=== PATIENT | female | born 1940 | race Caucasian/White ===

== ENCOUNTER 2016-09-02 13:38 | Observation (INO) | payer MEDICARE, OTHER, MEDICAID ==
[~2016-09-02 13:38] MED LIST: ACETAMINOPHEN1 EAC4 PO; ACIDOPHILUS1 CAP; ACIDOPHILUS1 EAC5 PO; AMARYL1 M1 PO; AMOXICILLIN500 M2 PO; ASPIR 8181 M1 PO; ASPIR 8181 MG PO; CALCIUM; CALCIUM CITRAT1 EAC6 PO; CALCIUM CITRATE PO; CARVEDILOL3.125 M1 PO; CINNAMON500 MG; CITRUCEL; CO Q-10100 M2 PO; COENZYME Q10; COLACE100 MG PO; COREG6.25 MG PO; CRANBERRY PO; CRESTOR10 MG PO; CRESTOR10 MG/TAB PO; CYMBALTA30 MG PO; Calcium PO; DOCUSATE CALCI100 MG; DULCOLAX5 MG PO; FERROUS SULFAT325 MG PO; FISH OIL 1,0001 CA PO; FISH OIL 1,0001 EA10 PO; FISH OIL 1,0001 EAC9 PO; FLEXERIL5 MG PO; FLONASE ALLERG9.9 ML NS; FLONASE16 G3 NS; FLONASE16 GM NS; FLORINEF ACETA0.1 MG PO; FLUCONAZOLE200 MG; FLUOXETINE HCL20 MG PO; FLUOXETINE HCL40 MG PO; FORTEO2.4 ML SQ; GLUCOPHAGE500 M3 PO; IMODIUM2 MG PO; ISOSORBIDE MONO30 MG; KEFLEX500 M1 PO; LIDODERM700 MG TOP; LORTAB 5-500 T1 EACH PO; LYZINE; METFORMIN HCL500 MG PO; METHSCOPOLAMIN2.5 MG PO; METHSCOPOLAMINE; MILK OF MAGNESIA; MIRALAX17 G2 PO; MIRAPEX0.25 M1 PO; MULTIVITAMIN1 CAP; MULTIVITAMIN1 TAB PO; MYRBETRIQ50 M1 PO; NIASPAN500 MG; NIASPAN500 MG PO; NITROFURANTOIN100 MG PO; NORCO 5-325 TA1 EACH PO; NORCO 5/325 TAB1 TAB PO; NORCO 7.5/3251 TA1 PO; OMEGA 31 CAP PO; OMEPRAZOLE20 MG PO; OMEPRAZOLE40 M2 PO; ONDANSETRON ODT4 M1 PO; PEPCID AC20 MG PO; PROTONIX40 MG PO; SINEMET-25/1001 TAB PO; SYSTANE ULTRA 010 ML BOTH EYES; TRAMADOL HCL50 M2 PO; TRAMADOL HCL50 MG PO; TRIMETHOPR100 MG/TAB PO; TYLENOL PM EX-S1 TAB; TYLENOL PM EX-S1 TAB PO; TYLENOL325 MG; TYLENOL325 MG PO; VESICARE PO; VESICARE5 M1 PO; VITAMIN C; VITAMIN D; VITAMIN D 22000 UNIT PO; VITAMIN D31000 UNI4 PO; VITAMIN D400 UNIT PO; ZOFRAN ODT8 MG/TAB PO; [UNRECOGNIZED DRUG - CODE] PO
[2016-09-02] MEDS ORDERED: ASPIRIN EC81 MG PO (14:37)
[2016-09-02] MEDS ORDERED: PROZAC20 M3 PO (14:41)
[2016-09-02] MEDS ORDERED: PROZAC40 M1 PO (14:42)
[2016-09-02] MEDS ORDERED: MIRAPEX0.25 M1 PO (14:43)
[2016-09-02] MEDS ORDERED: GLUCOPHAGE500 M3 PO (14:44)
[2016-09-02] MEDS ORDERED: COREG3.125 M1 PO (14:45)
[2016-09-02] MEDS ORDERED: NIACIN ER500 M1 PO (14:47)
[2016-09-02] MEDS ORDERED: ROSUVASTATIN CA10 MG PO (14:47)
[2016-09-02] MEDS ORDERED: VITAMIN D31000 UNI4 PO (14:48)
[2016-09-02] MEDS ORDERED: FISH OIL 11000 MG/CA PO (14:48)
[2016-09-02] MEDS ORDERED: TAB-A-VITE1 EAC1 PO (14:49)
[2016-09-02] MEDS ORDERED: CALCIUM CITRAT1 EA25 PO (14:49)
[2016-09-02] MEDS ORDERED: OMEPRAZOLE40 M2 PO (14:49)
[2016-09-02] MEDS ORDERED: FEOSOL325 M1 PO (14:49)
[2016-09-02] MEDS ORDERED: FLONASE ALLERG9.9 ML (14:50)
[2016-09-02] MEDS ORDERED: MACRODANTIN50 M2 PO ×2 (14:50→20:52)
[2016-09-02] MEDS ORDERED: CRANBERRY500 M2 PO (14:51)
[2016-09-02] MEDS ORDERED: PROBIOTIC1 EA10 PO (14:52)
[2016-09-02] MEDS ORDERED: [UNRECOGNIZED DRUG - CODE] PO (14:52)
[2016-09-02] MEDS ORDERED: TYLENOL EXTRA500 M1 PO (14:53)
[2016-09-02] MEDS ORDERED: TYLENOL PM EX-1 EAC4 PO (14:53)
[2016-09-02 15:20] LABS: BASO % 0.5 % (0-2); EOS % 4.4 % (0-7); EOSINOPHIL ABSOLUTE COUNT 0.3 tho/cmm (0.0-0.7); HCT-HEMATOCRIT 31.8 % (34.0-49.0); HGB-HEMOGLOBIN 10.5 gm/dl (12.0-15.5); LYMPH % 31.5 % (20-45); LYMPH ABSOLUTE COUNT 2.1 tho/cmm (0.8-4.5); MCV (MEAN CELL VOLUME) 93.8 fl (82.0-96.0); MEAN PLATELET VOLUME 9.5 cmc (9.4-12.4); MONO % 11.7 % (0-12); MONOCYTE ABSOLUTE COUNT 0.8 tho/cmm (0.0-1.2); NEUTROPHIL ABSOLUTE COUNT 3.4 tho/cmm (1.6-8.0); NEUTROPHIL-AUTOMATED 3.4 tho/cmm (1.6-8.0); NEUTROPHILS % 51.9 % (40-80); PLATELET COUNT 225 tho/cmm (150-450); RED BLOOD COUNT 3.39 mil/cmm (4.00-5.20); RED CELL DISTRIBUTION WIDTH 11.8 % (12.4-16.4); WHITE BLOOD COUNT 6.6 tho/cmm (4.0-10.0)
[2016-09-02 15:25] LABS: ALBUMIN 3.6 g/dl (3.5-5.0); ALKALINE PHOSPHATASE 43 U/L (33-138); ALT/SGPT 27 U/L (12-78); ANION GAP 12 mmol/L (0-20); AST/SGOT 24 U/L (10-40); BILIRUBIN,TOTAL 0.2 mg/dl (0-1.5); BLOOD UREA NITROGEN 17 mg/dl (6-24); CARBON DIOXIDE-VENOUS 25 mmol/L (22-32); CHLORIDE 103 mmol/l (96-110); CREATININE 0.79 mg/dl (0.50-1.10); GLUCOSE 100 mg/dL (70-110); POTASSIUM 4.1 mmol/L (3.7-5.1); SODIUM 136 mmol/L (135-145); eGFR VALUE FOR BLACK 85 mL/Min
[2016-09-02 15:36] LABS: URINE APPEARANCE CLEAR; URINE BILIRUBIN NEGATIVE (NEG); URINE BLOOD SMALL (NEG); URINE COLOR YELLOW; URINE GLUCOSE (UA) NEGATIVE (NEG); URINE KETONE NEGATIVE (NEG); URINE LEUKOCYTE ESTERASE NEGATIVE (NEG); URINE NITRITE NEGATIVE (NEG); URINE PH 6.5 (5.0-8.0); URINE PROTEIN NEGATIVE (NEG); URINE SPECIFIC GRAVITY 1.005 (1.003-1.030)
[2016-09-02 15:42] LABS: ESR-ERYTHROCYTE SED RATE 34 mm/hr (0-30)
[2016-09-02 15:42] LABS: URINE EPITHELIAL CELLS 0-2 /[HPF] (0-10)
[2016-09-02 15:43] LABS: URINE WBC RARE /[HPF] (0-5)
[2016-09-02] MEDS ORDERED: SYSTANE ULTRA OP (20:49)
[2016-09-02] MEDS ORDERED: TRIMETHOPRIM100 M1 PO (20:50)
[2016-09-02] MEDS ORDERED: POLYETHYLENE G255 G1 PO (20:51)
[2016-09-02] MEDS ORDERED: TYLENOL ARTHRI650 M1 PO (20:53)
[2016-09-02] MEDS ORDERED: REFRESH PLUS1 EACH EACH EYE (20:55)
[2016-09-02] MEDS ORDERED: TRANSDERM-SCOP1 EACH TD (20:55)
[2016-09-02] MEDS ORDERED: PROLIA60 MG/1 M1 SC (20:56)
[2016-09-02] MEDS ORDERED: ONDANSETRON HCL4 M2 PO (20:57)
[2016-09-02] MEDS ORDERED: TOBREX3.5 G1 RIGHT EYE (20:58)
[2016-09-04] MEDS ORDERED: NEURONTIN100 M1 PO (14:05)
[2016-12-14] MEDS ORDERED: SYSTANE ULTRA 010 M1 OP (17:31)
[2016-12-14] MEDS ORDERED: MULTIVITAMINS1 EAC6 PO (17:31)
[2016-12-14] MEDS ORDERED: CAL-CITRATE PL1 EAC1 PO (17:31)
[2016-12-14] MEDS ORDERED: FEOSOL325 M1 PO (17:31)
[2016-12-14] MEDS ORDERED: COREG3.125 M1 PO (17:32)
[2016-12-14] MEDS ORDERED: VITAMIN D32000 UNI3 PO (17:32)
[2016-12-14] MEDS ORDERED: POLYETHYLENE G255 G1 PO (17:32)
[2016-12-14] MEDS ORDERED: TRIMETHOPRIM100 M1 PO (17:32)
[2016-12-14] MEDS ORDERED: FLOVENT HFA1 PUFF INH (17:32)
[2016-12-14] MEDS ORDERED: MACRODANTIN50 M2 PO (17:33)
[2016-12-14] MEDS ORDERED: ASPIRIN81 M1 PO (17:33)
[2016-12-14] MEDS ORDERED: CRESTOR10 M1 PO (17:33)
[2016-12-14] MEDS ORDERED: FLUOXETINE HCL40 M1 PO (17:34)
[2016-12-14] MEDS ORDERED: TYLENOL ARTHRI650 M1 PO (17:37)
[2016-12-14] MEDS ORDERED: TOBRADEX EYE DRO5 M1 EACH EYE (17:37)
[2016-12-14] MEDS ORDERED: CRANBERRY500 M5 PO (17:38)
[2016-12-14] MEDS ORDERED: ACIDOPHILUS CA1 EACH PO (17:38)
[2016-12-14] MEDS ORDERED: COQ-1030 M1 PO (17:38)
[2016-12-14] MEDS ORDERED: MIRAPEX0.25 M1 PO (17:38)
[2016-12-14] MEDS ORDERED: TRANSDERM-SCOP1 EACH TD (17:39)
[2016-12-14] MEDS ORDERED: REFRESH PLUS1 EACH EACH EYE (17:39)
[2016-12-14] MEDS ORDERED: FISH OIL 11000 MG/CA PO (17:39)
[2016-12-14] MEDS ORDERED: PROLIA60 MG/1 M1 SC (17:40)
[2016-12-14] MEDS ORDERED: OMEPRAZOLE40 M2 PO (17:40)
[2016-12-14] MEDS ORDERED: NIASPAN500 M1 PO (17:40)
[2016-12-14] MEDS ORDERED: GLUCOPHAGE XR500 M1 PO (17:40)
[2016-12-14] MEDS ORDERED: TYLENOL PM EX-1 EAC4 PO (17:40)
[2016-12-14] MEDS ORDERED: ZOFRAN4 M2 PO (17:41)
[2016-12-14] MEDS ORDERED: MECLIZINE HCL12.5 M3 PO (19:08)
== END 2016-09-04 16:25 ==
LOC: EDMED 13:38 → EMR2 16:31 → CAR1 17:48
PROVIDERS: Emergency Medicine; Physician Assistant; ADMIT Internal Medicine
DX: G89.29 Other chronic pain (principal); M54.5 Low back pain; M54.10 Radiculopathy, site unspecified; M79.672 Pain in left foot; G25.81 Restless legs syndrome; E11.9 Type 2 diabetes mellitus without complications; R42 Dizziness and giddiness; I10 Essential (primary) hypertension; M81.0 Age-related osteoporosis without current pathological fracture; M19.90 Unspecified osteoarthritis, unspecified site; K21.9 Gastro-esophageal reflux disease without esophagitis; I25.10 Atherosclerotic heart disease of native coronary artery without angina pectoris; F41.8 Other specified anxiety disorders; E78.5 Hyperlipidemia, unspecified; Z79.82 Long term (current) use of aspirin; Z79.84 Long term (current) use of oral hypoglycemic drugs; Z79.899 Other long term (current) drug therapy; Z88.1 Allergy status to other antibiotic agents; Z88.5 Allergy status to narcotic agent; Z87.440 Personal history of urinary (tract) infections; Z90.49 Acquired absence of other specified parts of digestive tract; Z90.89 Acquired absence of other organs; Z90.721 Acquired absence of ovaries, unilateral; Z95.1 Presence of aortocoronary bypass graft; Z98.41 Cataract extraction status, right eye; Z98.42 Cataract extraction status, left eye; Z98.890 Other specified postprocedural states
CPT/HCPCS: G0378; G8978-GO-CJ; G8978-GO-CK; G8978-GP-CK; G8979-GO-CJ; G8979-GP-CK; G8980-GO-CK; G8980-GP-CK; J1815